=== PATIENT | female | born 1980 | race Caucasian/White ===

== ENCOUNTER 2017-08-20 19:09 | Emergency (ER) | payer OTHER, SELFPAY ==
--- NOTE | 2017-08-20 19:55 | ERPHSYRPT ---
- History of Present Illness Time Seen by Provider: 08/20/17 19:45 Source: patient Exam Limitations: clinical condition Physician History: PATIENT WITH A HISTORY OF INTRAVENOUS SUBSTANCE ABUSE COMPLAINS OF FALL TO GROUND SUSTAINED INJURY TO LEFT HIP SUSTAINING PAIN 2 days ago. DENIES ASSOCIATED HEAD, NECK OR BACK INJURY. Occurred: days ago Reason for Fall: slipped Injuries/Pain Location: lower extremity Quality: throbbing Severity of Pain-Max: severe Severity of Pain-Current: severe Modifying Factors: Improves With: movement Associated Symptoms (Fall): other (PAIN UPON MOVEMENT OF LOWER EXTREMITY) Allergies/Adverse Reactions: Penicillins Allergy (Mild, Verified 12/21/15 01:50) Hives Home Medications: Albuterol Common Canister [Proventil Common Canister] 2 puff IH Q4-6HPRN PRN 12/21/15 [History] Fluoxetine HCl 10 mg [Prozac 10 mg] 40 mg PO DAILY 12/21/15 [History] Metformin HCl 500 mg [Glucophage 500 MG] 1,500 mg PO BID 12/21/15 [History ] Hx Tetanus, Diphtheria Vaccination/Date Given: No Hx Influenza Vaccination/Date Given: No Hx Pneumococcal Vaccination/Date Given: No - Review of Systems Constitutional: No Fever, No Chills Respiratory: No Cough, No Dyspnea Cardiac: No Chest Pain, No Edema, No Syncope Genitourinary Symptoms: No Dysuria Musculoskeletal: Injury, Joint Pain Neurological: No Symptoms Psychological: No Symptoms Endocrine: No Symptoms - Past Medical History Pertinent Past Medical History: Yes Neurological History: No Pertinent History ENT History: No Pertinent History Cardiac History: Hypertension Respiratory History: Asthma Endocrine Medical History: Diabetes Type II Musculoskeletal History: No Pertinent History GI Medical History: No Pertinent History History: Renal Disease Psycho-Social History: Anxiety, Depression Female Reproductive Disorders: Other Other Medical History: OVARIAN CYST ET MASS REMOVED FROM UTERUS. 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2 - Past Surgical History Past Surgical History: Yes Neuro Surgical History: No Pertinent History Cardiac: No Pertinent History Respiratory: No Pertinent History Gastrointestinal: Other Genitourinary: No Pertinent History Musculoskeletal: No Pertinent History Female Surgical History: No Pertinent History, Other Other Surgical History: COLONOISCOPY - Social History Smoking Status: Current every day smoker How long have you smoked: 20 Exposure to second hand smoke: Yes Drug Use: none Patient Lives Alone: No - Nursing Vital Signs Nursing Vital Signs: Initial Vital Signs Temperature 98.1 F 08/20/17 19:50 Pulse Rate 110 H 08/20/17 19:50 Respiratory Rate 22 08/20/17 19:50 Blood Pressure 151/94 08/20/17 19:50 O2 Sat by Pulse Oximetry 98 08/20/17 19:50 Pain Scale Pain Intensity 10 - Georgette Coma Score Best Eye Response ([place]): (4) open spontaneously Best Verbal Response ([place]): (5) oriented Best Motor Response ([place]): (6) obeys commands Georgette Total: 15 - Physical Exam General Appearance: moderate distress Head Injury: no evidence of injury Eye Exam: PERRL/EOMI ENT Exam: airway nml Neck Exam: supple, normal inspection, No tenderness Respiratory/Chest Exam: chest tenderness, normal breath sounds Cardiovascular Exam: normal heart sounds, regular rate/rhythm Back Exam: normal inspection Extremity Exam: tenderness (LEFT GREATER TROCHANTER, NO SWELLING OR ECCHYMOSIS, NO DEFORMITY, PAIN LEFT HIP UPON PASSIVE RANGE OF MOTION , MULTIPLE NEEDLE TRACK SCARS OVER UPPER EXTREMILTY) Peripheral Pulses: carotid (R): 2+, carotid (L): 2+, femoral (R): 2+, femoral (L ): 2+, dorsalis-pedis (R): 2+, dorsalis-pedis (L): 2+ Neurologic Exam: alert, oriented x 3 Skin Exam: normal color SpO2 Interpretation: normal SpO2: 99 - CT Exams Pelvis CT Interpretation: Discussed w/radiologist (NEGATIVE, FOR FRACTURE, INCIDNETAL 3MM OVARIAN CYST LEFT, 2.8CM NABOTHIAN CYST) Ordered Tests: Active Orders 24 hr Category Date Time Status PELVIS WITHOUT CONTRAST [CT] Stat Exams 08/20/17 20:37 Taken CULTURE,URINE Stat Lab 08/20/17 19:52 Received HCG,QUALITATIVE URINE Stat Lab 08/20/17 19:52 Completed UA W/ MICROSCOPIC Stat Lab 08/20/17 19:52 Completed Urine Triage Profile Stat Lab 08/20/17 19:52 Completed Medication Summary Discontinued Medications Generic Name Dose Route Start Last Admin Trade Name Freq PRN Reason Stop Dose Admin Ketorolac Tromethamine 60 mg 08/20/17 20:33 08/20/17 20:42 Toradol 30 Mg Injection IM 08/20/17 20:34 60 mg STAT ONE Administration Ketorolac Tromethamine Confirm 08/20/17 20:39 Toradol 30 Mg Injection Administered 08/20/17 20:40 Dose 60 mg .ROUTE .STK-MED ONE Orphenadrine Citrate 60 mg 08/20/17 20:33 08/20/17 20:41 Norflex 60 Mg/2 Ml IM 08/20/17 20:34 60 mg STAT ONE Administration Orphenadrine Citrate Confirm 08/20/17 20:39 Norflex 60 Mg/2 Ml Administered 08/20/17 20:40 Dose 60 mg .ROUTE .STK-MED ONE Lab/Rad Data: Laboratory Results 08/20/17 08/20/17 08/20/17 Range/Units 19:52 19:52 19:52 Ur Collection Type VOID Urine Color YELLOW (YELLOW) Urine Appearance HAZY (CLEAR) Urine pH 7.0 (5-6) Ur Specific [place] 1.020 (1.005-1.025) Urine Protein NEGATIVE (Negative) Urine Ketones NEGATIVE (NEGATIVE) Urine Blood 50 (0-5) Tha/ul Urine Nitrite NEGATIVE (NEGATIVE) Urine Bilirubin NEGATIVE (NEGATIVE) Urine Urobilinogen NORMAL (0-1) mg/dL Ur Leukocyte Esterase TRACE (NEGATIVE) Urine Microscopic RBC 2-5 (0-2) /HPF Urine Microscopic WBC 5-10 (0-5) /HPF Ur Epithelial Cells MODERATE (FEW) /HPF Amorphous Crystals MODERATE (NEGATIVE) /HPF Urine Bacteria MODERATE (NEGATIVE) /HPF Urine Mucus SLIGHT (NEGATIVE) /HPF Urine Culture Reflexed YES (NO) Urine Glucose 1000 (NEGATIVE) mg/dL Urine HCG, Qual NEGATIVE (Negative) Urine Opiates Level NEG. (NEGATIVE) Ur Methadone NEG. (NEGATIVE) Urine Barbiturates NEG. (NEGATIVE) Ur Phencyclidine (PCP) NEG. (NEGATIVE) Urine Amphetamine POS. (NEGATIVE) U Benzodiazepine Level NEG. (NEGATIVE) Urine Cocaine NEG. (NEGATIVE) Urine Marijuana (THC) NEG. (NEGATIVE) Specimen Received 08/20/171999 - Progress Progress Note: 08/20/17 22:19 ADMINISTERED TORADOL 60MG IM/ NORFLEX 60MG IM 08/20/17 22:20- URINE TOX POSITIVE FOR METHAMPHETAMINE Counseled pt/family regarding: lab results, diagnosis, rad results - Departure Time of Disposition: 22:30 Departure Disposition: Home Clinical Impression: LEFT HIP CONTUSION, URINARY TRACT INFECTION, METHAMPHETAMINE ABUSE Condition: Stable Critical Care Time: No Referrals: NASIMA NI [NON-STAFF [facility] W/O PRIVILEGES] - Additional Instructions: AMBULATE USING WALKER ASSISTANCE WITH NONWEIGHT BEARING LEFT LOWER EXTREMITY FOR 4-5 DAYS. TORADOL 10MG EVERY 6 HOURS FOR PAIN. ANTIBIOTIC BACTRIM DS TWICE DAILY FOR 10 DAYS. CONSULT YOUR PRIMARY CARE PROVIDER FOR FOLLOWUP. Prescriptions: Ketorolac Tromethamine [Toradol] 10 mg PO Q6HPRN PRN #20 tablet PRN Reason: Pain Smz/Tmp Ds Tablet [Bactrim Ds Tablet] 1 tab PO BID #20 tablet
[2017-08-20 20:26] LABS: Amphetamine,Urine POS. (NEGATIVE); Appearance HAZY (CLEAR); Barbiturate,Urine NEG. (NEGATIVE); Benzodiazepine,Urine NEG. (NEGATIVE); Bilirubin NEGATIVE (NEGATIVE); Blood 50 Ery/ul (0-5); Cocaine,Urine NEG. (NEGATIVE); Glucose 1000 mg/dL (NEGATIVE); Ketones NEGATIVE (NEGATIVE); Leukocyte Esterase TRACE (NEGATIVE); Methadone,Urine NEG. (NEGATIVE); Nitrite NEGATIVE (NEGATIVE); Opiate,Urine NEG. (NEGATIVE); PCP,Urine NEG. (NEGATIVE); Protein,Urine Dip NEGATIVE (Negative); THC,Urine NEG. (NEGATIVE); Urobilinogen NORMAL mg/dL (0-1)
[2017-08-20 20:28] LABS: Amourphous Crystal MODERATE /HPF (NEGATIVE); Bacteria MODERATE /HPF (NEGATIVE); Epithelial Cells MODERATE /HPF (FEW); Mucus SLIGHT /HPF (NEGATIVE)
[2017-08-20] MEDS ORDERED: TORAdol 30 mg Injection IM ONE (20:33)
[2017-08-20] MEDS ORDERED: Norflex 60 MG/2 ML ONE (20:39)
[2017-08-20] MEDS ORDERED: TORAdol 30 mg Injection ONE (20:39)
[2017-08-20] MEDS: Norflex 60 MG/2 ML IM ONE ×2 (20:40→20:41)
[2017-08-20] MEDS ORDERED: BACTRIM DS TABLET PO STA (22:31)
[2017-08-20] MEDS ORDERED: BACTRIM DS TABLET PO ONE (22:35)
[2017-08-20 22:52] VITALS: BP 127/76; PULSE 88; O2SAT 97
--- NOTE | 2017-08-21 09:02 | XRAY ---
Indication: Left hip pain following fall 2 days ago. Multiple contiguous axial images obtained through the pelvis with special attention to the osseous structures. Two-dimensional sagittal and coronal reformatted images obtained. Comparison: None No acute fracture, dislocation, or suspicious bony lesions. Hips and SI joints are bilaterally symmetric. Visualized soft tissues demonstrates 4.3 cm left ovary cyst. Also a few uterine cervical nabothian cysts, largest 2.8 cm. No pelvic free fluid/air. Remaining visualized noncontrasted soft tissues unremarkable. Impression: 1. Negative acute fracture/dislocation. 2. Incidental 4.3 cm left ovary cyst and nabothian cysts. Pelvic sonogram may yield further information if clinically warranted. CT DI 19.20
== END 2017-08-20 22:54 | disposition home or self-care (01) ==
LOC: ED 19:09
DX: S70.02XA Contusion of left hip, initial encounter (principal); N39.0 Urinary tract infection, site not specified; F15.10 Other stimulant abuse, uncomplicated; W01.0XXA Fall on same level from slipping, tripping and stumbling without subsequent striking against object, initial encounter; Z79.84 Long term (current) use of oral hypoglycemic drugs; Z79.899 Other long term (current) drug therapy; I10 Essential (primary) hypertension; E11.9 Type 2 diabetes mellitus without complications
CPT/HCPCS: 72192; 80307; 81000; 84703; 87086; 96372; 99284; J1885; J2360; A9270-GY